=== PATIENT | female | born 1945 | race Two or more races ===

== ENCOUNTER 2016-12-22 08:23 | Emergency (ER) | payer MEDICARE ==
[~2016-12-22] VITALS: Ht 160 cm; Wt 70.0 kg
[2016-12-22 08:31] VITALS: Ht 160 cm; Wt 70.0 kg
[2016-12-22] MEDS ORDERED: ONDANSETRON (ODT) 4 MG TAB ODT STA (08:38)
[2016-12-22] MEDS ORDERED: MECLIZINE 12.5 MG TAB PO ONE (09:00)
[2016-12-22] MEDS ORDERED: OMEG500C3 PO (09:50)
--- NOTE | 2016-12-22 09:53 | RADRPT ---
PROCEDURE: CT Brain without. CLINICAL INDICATION: Vertigo TECHNIQUE: A CT of the brain was performed on a multi-slice CT scanner utilizing axial sections fr om the skull base through the vertex without contrast. Coronal and sagittal reconstructed images w ere provided. One or more of the following does reduction techniques were used: Automated exposure control; adjustment of the mA and/or kV according to patient size; use of the aorta of reconstructi on technique. Images were reviewed on a high-resolution PACS workstation. The exam CTDI = 90 mGy. The exam DLP = 720.23 mGy-cm. COMPARISON: None available FINDINGS: There is mild global volume loss. The ventricles and sulci are symmetric in size and morphology. T here is no evidence of intracranial hemorrhage, mass effect, edema or midline shift. No abnormal in tra-axial or extra-axial fluid collections are seen. The woodward/white matter differentiation is well preserved. The osseous structures and visualized sinuses are unremarkable. The mastoid air cells are clear. Th e surrounding soft tissue scalp and bony calvarium are intact and normal. IMPRESSION: 1. No CT evidence of acute intracranial pathology. 2. Mild global volume loss. RPTAT: KK .Karri Dan MD, Date Time Electronically viewed and signed by .Karri Dan MD, MD on 12/22/2016 09:53 .B/
[2016-12-22] MEDS ORDERED: MECL-77 PO (10:14)
[2016-12-22] MEDS ORDERED: ONDA4TAB14 PO (10:14)
[2016-12-22] MEDS ORDERED: LORA-777 PO (10:14)
--- NOTE | 2016-12-22 10:21 | ERD ---
ER Documentation Chief Complaint Date/Time DATE: 12/22/16 TIME: 10:16 Chief Complaint DIZZINESS STARTING AT 0715 THIS MORNING HPI This a pleasant 71-year-old female who says she woke this morning and at around 715 developed a sudden onset of room spinning that is severe with nausea and vomiting 1 due to the severity of the spinning. She had no visual change no speech change no numbness weakness in extremities. Patient says that her right ear feels full and has some lack of hearing. No fever sore throat. She says the spinning is worse when she moves her head and better when she keeps her head still. Again, no focal neurological complaints ROS All systems reviewed and are negative except as per history of present illness. Medications Home Meds Active Scripts Loratadine/Pseudoephedrine (CLARITIN-D 24 HOUR TABLET) 1 Each Tab.er.24h, 1 TAB PO DAILY, #30 TAB Prov:DAIANA KATZ DO 12/22/16 Ondansetron (Ondansetron Odt) 4 Mg Tab.rapdis, 4 MG PO Q6H Y for NAUSEA AND/OR VOMITING, #10 TAB Prov:DAIANA KATZ DO 12/22/16 Meclizine Hcl* (Meclizine Hcl*) 25 Mg Tablet, 25 MG PO Q8H Y for DIZZINESS, #30 TAB Prov:DAIANA KATZ DO 12/22/16 Reported Medications [place]-3 Fatty Acids (Fish Oil) 500 Mg Capsule, 500 MG PO QAM, CAP 12/22/16 Allergies Allergies: Coded Allergies: No Known Allergy (Unverified , 12/22/16) PMhx/Soc Medical and Surgical Hx: pt denies Medical Hx, pt denies Surgical Hx History of Surgery: No Anesthesia Reaction: No Hx Neurological Disorder: No Hx Respiratory Disorders: No Hx Cardiac Disorders: No Hx Psychiatric Problems: No Hx Miscellaneous Medical Probl: No Hx Alcohol Use: No Hx Substance Use: No Hx Tobacco Use: No Smoking Status: Never smoker FmHx Family History: No coronary disease Physical Exam Vitals Vital Signs Date Time Temp Pulse Resp B/P Pulse Ox O2 Delivery O2 Flow Rate FiO2 12/22/16 08:31 96.5 98 22 135/101 99 12/22/16 08:25 96.5 98 22 135/101 99 Room Air Physical Exam Const: Well-developed, well-nourished Head: Atraumatic, normocephalic Eyes: Normal Conjunctiva, PERRLA, EOMI, normal sclera, no nystagmus ENT: Normal External Ears, right tympanic membrane is clear, no erythema but has fluid collection behind it with a slight bulge to the membrane nose and Mouth, moist mucus membranes. Neck: Full range of motion. No meningismus, no lymphadenopathy. Resp: Clear to auscultation bilaterally, no wheezing, rhonchi, rales Cardio: Regular rate and rhythm, no murmurs, S1 S2 present Abd: Soft, non tender x 4, non distended. Normal bowel sounds, no guarding or rebound, no pulsitile abdominal masses or bruits Skin: No petechiae or rashes, no ecchymosis , no maculopapular rash Back: No midline or flank tenderness Ext: No cyanosis, or edema, FROM x 4, normal inspection, neurovascularly intact x 4 Neur: Awake and alert, STR 5/5 x 4, sensation intact x 4, no focal findings, cerebellum intact, positive Hallpike to the right Psych: Normal Mood and Affect Results 24 hrs Current Medications Medications (Trade) Dose Ordered Sig/Marlys Route PRN Reason Start Time Stop Time Status Last Admin Dose Admin Ondansetron HCl (Zofran Odt) 4 mg ONCE STAT ODT 12/22/16 08:38 12/22/16 08:40 DC 12/22/16 09:03 Meclizine HCl (Antivert) 25 mg ONCE ONCE PO 12/22/16 09:00 12/22/16 09:01 DC 12/22/16 09:03 Procedures/MDM PROCEDURE: CT Brain without. CLINICAL INDICATION: Vertigo TECHNIQUE: A CT of the brain was performed on a multi-slice CT scanner utilizing axial sections from the skull base through the vertex without contrast. Coronal and sagittal reconstructed images were provided. One or more of the following does reduction techniques were used: Automated exposure control; adjustment of the mA and/or kV according to patient size; use of the aorta of reconstruction technique. Images were reviewed on a high-resolution PACS workstation. The exam CTDI = 90 mGy. The exam DLP = 720.23 mGy-cm. COMPARISON: None available FINDINGS: There is mild global volume loss. The ventricles and sulci are symmetric in size and morphology. There is no evidence of intracranial hemorrhage, mass effect, edema or midline shift. No abnormal intra-axial or extra-axial fluid collections are seen. The woodward/white matter differentiation is well preserved. The osseous structures and visualized sinuses are unremarkable. The mastoid air cells are clear. The surrounding soft tissue scalp and bony calvarium are intact and normal. IMPRESSION: 1. No CT evidence of acute intracranial pathology. 2. Mild global volume loss. RPTAT: KK .Karri Dan MD, Date Time Electronically viewed and signed by .Karri Dan MD, on 2016 09:53 .B/ CC: DAIANA KATZ DO Patient says she is completely asymptomatic now after receiving Antivert. Strongly feel this patient's symptoms are peripheral in nature as she has a positive Hallpike and she has right otitis serous fluid No focal neurological complaints I did give her CVA warning signs Departure Diagnosis: Primary Impression: Vertigo Additional Impression: Acute serous otitis media of right ear Recurrence: not specified as recurrent Qualified Code: H65.01 - Right acute serous otitis media, recurrence not specified Condition: Stable Patient Instructions: Inner Ear Problems: Causes of Dizziness (Vertigo), Vertigo, Unspecified DAIANA KATZ DO Dec 22, 2016 10:20
[2016-12-22 10:58] VITALS: BP 157/86; PULSE 72; RESP 18; TEMP 97.9
== END 2016-12-22 11:01 | disposition home or self-care (01) ==
LOC: E/R 08:23
DX: R42 Dizziness and giddiness (principal); R40.2252 Coma scale, best verbal response, oriented, at arrival to emergency department; H65.01 Acute serous otitis media, right ear; R11.2 Nausea with vomiting, unspecified; R40.2142 Coma scale, eyes open, spontaneous, at arrival to emergency department; R40.2362 Coma scale, best motor response, obeys commands, at arrival to emergency department
CPT/HCPCS: 70450

== ENCOUNTER → 2017-01-30 | Outpatient (CLI) | payer MEDICARE, OTHER ==
[~2017-01-30] MED LIST: LORA-777 PO; MECL-77 PO; OMEG500C3 PO; ONDA4TAB14 PO
[2017-01-30 13:23] LABS: ADD SCAN DIFF NO
[2017-01-30 13:28] LABS: BASOPHIL # 0.1 10^3/ul (0.0-0.1); BASOPHILS % 0.9 % (0.0-2.0); EOSINOPHILS # 0.1 10^3/ul (0.0-0.5); EOSINOPHILS % 1.8 % (0.0-7.0); HEMATOCRIT 41.5 % (37.0-47.0); HEMOGLOBIN 13.2 g/dl (12.0-16.0); LYMPHOCYTES # 2.5 10^3/ul (0.8-2.9); LYMPHOCYTES % 31.7 % (15.0-51.0); MEAN CORPUSCULAR HEMOGLOBIN 28.8 pg (29.0-33.0); MEAN CORPUSCULAR HGB CONC 31.8 g/dl (32.0-37.0); MEAN CORPUSCULAR VOLUME 90.6 fl (82.0-101.0); MEAN PLATELET VOLUME 10.5 fl (7.4-10.4); MONOCYTE # 0.7 10^3/ul (0.3-0.9); MONOCYTES % 8.5 % (0.0-11.0); NEUTROPHIL # 4.4 10^3/ul (1.6-7.5); NEUTROPHILS % 56.8 % (39.0-77.0); PLATELET COUNT 269 10^3/UL (140-415); RED BLOOD COUNT 4.58 10^6/ul (4.20-5.40); RED CELL DISTRIBUTION WIDTH 12.4 % (11.5-14.5); WHITE BLOOD COUNT 7.7 10^3/ul (4.8-10.8)
[2017-01-30 13:37] LABS: ALBUMIN 4.3 g/dl (3.3-4.9); INR 0.87; PROTIME 11.8 Sec (12.2-14.2); PT RATIO 0.9
[2017-01-30 13:38] LABS: PARTIAL THROMBOPLASTIN TIME 25.8 Sec (25.0-35.0)
[2017-01-30 13:40] LABS: ALBUMIN/GLOBULIN RATIO 1.19; BILIRUBIN,INDIRECT 0.4 mg/dl (0-1.1); BILIRUBIN,TOTAL 0.4 mg/dl (0.2-1.3); CREATININE 0.97 mg/dl (0.44-1.00); TOTAL PROTEIN 7.9 g/dl (6.1-8.1)
[2017-01-30 13:41] LABS: CALCIUM 9.9 mg/dl (8.4-10.2)
[2017-01-30 13:53] LABS: ADD UMIC YES; URINE BILIRUBIN (Dip) 1+ (NEGATIVE); URINE BLOOD (Dip) NEGATIVE (NEGATIVE); URINE COLOR DK. YELLOW (YELLOW); URINE GLUCOSE (Dip) NEGATIVE (NEGATIVE); URINE KETONES (Dip) 15 (NEGATIVE); URINE LEUKOCYTE ESTERASE (Dip) NEGATIVE (NEGATIVE); URINE NITRITE (Dip) NEGATIVE (NEGATIVE); URINE TOTAL PROTEIN (Dip) TRACE (NEGATIVE); URINE UROBILINOGEN (Dip) 0.2 E.U./dL (0.1-1.0)
[2017-01-30 14:27] LABS: BACTERIA,URINE FEW; ICTOTEST NEGATIVE (NEGATIVE); MUCUS,URINE MODERATE; URINE RBCS 0-2 /HPF (0)
[2017-01-30 14:29] LABS: POTASSIUM 6.2 mmol/L (3.5-5.1)
--- NOTE | 2017-01-30 15:00 | RADRPT ---
PROCEDURE: XR Chest. CLINICAL INDICATION: Preop TECHNIQUE: PA and lateral views of the chest were obtained. COMPARISON: None available FINDINGS: There are atherosclerotic calcifications of the thoracic aorta. The cardiomediastinal silhouette is within normal limits. The lungs are clear. No pleural effusion or pneumothorax is identified. Th ere is spondylosis, and right shoulder arthroplasty hardware. IMPRESSION: No evidence of active cardiopulmonary disease. RPTAT: VV .Naldo Mancera MD, MD Date Time Electronically viewed and signed by .Naldo Mancera MD, MD on 01/30/2017 14:59 .O/
== END | disposition home or self-care (01) ==
LOC: LAB 12:37
PROVIDERS: ATTEND Internal Medicine
DX: Z01.818 Encounter for other preprocedural examination (principal)
CPT/HCPCS: 71020; 80053; 80076; 81001; 81003; 85025; 85610; 85730

== ENCOUNTER → 2017-02-02 | Outpatient (CLI) | END | disposition home or self-care (01) | DX: Z01.818 Encounter for other preprocedural examination (principal) ==